=== PATIENT | male | born 1965 | race Caucasian/White ===

== ENCOUNTER 2018-01-08 13:47 | Day surgery (SDC) | payer OTHER ==
[2018-01-08 14:20] VITALS: BMI 28.7
[2018-01-08] MEDS ORDERED: PROPOFOL 20 ML ONE (14:56)
[2018-01-08 15:23] VITALS: TEMP 97.6
[2018-01-08 16:10] VITALS: BP 116/72; PULSE 74
== END 2018-01-08 16:00 | disposition home or self-care (01) ==
LOC: JASU-ENDO 13:47
PROVIDERS: ATTEND Internal Medicine Gastroenterology
PROC: 0DJD8ZZ Inspection of Lower Intestinal Tract, Via Natural or Artificial Opening Endoscopic (ICD-10-PCS; principal; 2018-01-08 14:00)
DX: Z12.11 Encounter for screening for malignant neoplasm of colon (principal); K57.30 Diverticulosis of large intestine without perforation or abscess without bleeding; K64.8 Other hemorrhoids